=== PATIENT | male | born 1955 | race Caucasian/White ===

== ENCOUNTER 2016-07-09 17:13 | Emergency (ER) | payer OTHER ==
[~2016-07-09] VITALS: Ht 170.2 cm; Wt 79.4 kg
[2016-07-09 17:13] VITALS: BP 137/94; PULSE 68; RESP 20; TEMP 98.2; O2SAT 97
--- NOTE | 2016-07-09 17:13 | NUR ---
Pt brought back to main ER for eye irrigation, then placed to ER bed 8. Report given to TYRON Mars and BETTIE Simpson.
--- NOTE | 2016-07-09 17:13 | NUR ---
ANGUS Ortiz at bedside examining patient.
--- NOTE | 2016-07-09 17:30 | NUR ---
Patient is stable with . Patient states that he was pulling weeds when dirt went into right eye. States that he rinsed his eye with water but the water was chlorinated. complains of redness and burning to right eye. Redness noted around right eye. denies any blurry vision. No other complaints/ injuries per patient or noted.
[2016-07-09 18:17] VITALS: BP 137/94; PULSE 68; RESP 20; TEMP 98.2; O2SAT 97
--- NOTE | 2016-07-09 18:17 | NUR ---
Patient given written and verbal discharge instructions and verbalizes understanding. ER arnp discussed with patient the results and treatment provided. Patient in stable condition. ID arm band removed. Rx of POLYMITRIN given. Patient educated on pain management and to follow up with PMD 2- 3 DAYS. Pain Scale 0/10. Opportunity for questions provided and answered.
== END 2016-07-09 18:17 | disposition home or self-care (01) ==
LOC: SED 17:13
DX: S05.01XA Injury of conjunctiva and corneal abrasion without foreign body, right eye, initial encounter (principal); R03.0 Elevated blood-pressure reading, without diagnosis of hypertension; X58.XXXA Exposure to other specified factors, initial encounter; Y93.H2 Activity, gardening and landscaping; Y99.8 Other external cause status; Y92.89 Other specified places as the place of occurrence of the external cause
CPT/HCPCS: 99283